=== PATIENT | male | born 1950 | race Caucasian/White ===

== ENCOUNTER → 2017-05-10 | Outpatient (CLI) | payer MEDICARE ==
[~2017-05-10] MED LIST: HYDROCODONE-APA1 TA1 PO; PREDNISONE 5MG.5 MG PO; PROSCAR 5MG TABL5 MG PO; TAMSULOSIN HYD0.4 MG PO
[2017-05-10 10:13] LABS: LYMPH # 0.5 K/mm3 (0.7-4.5); LYMPH % 16.5 % (10-50)
[2017-05-10 10:13] LABS: BUN 18 mg/dL (7-18)
[2017-05-10 10:17] LABS: GFR (ESTIMATED) 96 ML/MIN (>60)
--- NOTE | 2017-05-13 09:35 | RADIOLOGY REPORT PS360 ---
MRI-T-SPINE W/WO CLINICAL INDICATION: Back pain, compression fractures, prostate cancer with thoracic spine pain, abnormal x-ray and bone scan PROSTATE CANCER, T-SPINE PAIN ORDERING PHYSICIAN: Dieudonne Scherer MD PATIENT AGE: 67 years COMPARISON: Radiograph and bone scan of 04/11/2017 FINDINGS: There is normal alignment. There is exaggeration of the thoracic kyphosis with mild to moderate wedge compression changes involving T7, T8, and T11. The wedge compression changes for the most part do not appear acute. There are Schmorl's nodes within the superior endplate of T7 on the left, inferior endplate of T8 on the right, superior endplate of T11, and superior endplate of L1. These are hypointense on T1 showing some hyperintensity on T2 and with some minimal contrast enhancement at T11 and T7. These are not typical appearance for metastatic foci. There is some minimal increased T2 signal along the superior endplate of T7 and T11 which may represent some mild superimposed acute compression change. No cord compression. No retropulsed fragments are evident. No paraspinal mass apparent. IMPRESSION: 1. Thoracic kyphosis with multiple chronic wedge compression changes. No retropulsed fragments. No cord compression. 2. Multiple Schmorl's nodes at T7, T8, T11, and L1. Some of these areas do demonstrate some enhancement suggesting inflammation. There is also some minimal endplate increased signal and enhancement at T11 and T7 suggesting mild acute endplate compression changes. 3. No convincing evidence of metastatic disease
== END ==
LOC: RAD 09:41 → LAB 09:41 → RAD 10:30
PROVIDERS: Internal Medicine
DX: M54.6 Pain in thoracic spine (principal); R93.7 Abnormal findings on diagnostic imaging of other parts of musculoskeletal system; C61 Malignant neoplasm of prostate
CPT/HCPCS: A9576

== ENCOUNTER 2017-07-03 08:45 | Outpatient (CLI) | payer MEDICARE ==
[~2017-07-03 08:45] MED LIST changes: +FINASTERIDE5 MG PO; +IMODIUM A-D2 M3 PO
[2017-07-03] MEDS ORDERED: CASODEX50 MG PO (09:02)
[2017-07-03 09:03] VITALS: BP 100/56
== END 2017-07-03 09:20 | disposition home or self-care (01) ==
LOC: COP 08:45
DX: C61 Malignant neoplasm of prostate (principal); Z51.11 Encounter for antineoplastic chemotherapy
CPT/HCPCS: J9217